=== PATIENT | female | born 1970 | race African-American/Black ===

== ENCOUNTER 2016-07-27 16:34 | Emergency (ER) | payer MEDICAID ==
[~2016-07-27] VITALS: Ht 165.1 cm; Wt 58.0 kg
[2016-07-27] MEDS ORDERED: VISCOUS LIDOCAINE 2% 15 ML UDC PO STA (18:30)
[2016-07-27] MEDS ORDERED: SODIUM CHLORIDE 0.9% 1,000 ML IV ONE (18:30)
[2016-07-27] MEDS ORDERED: FAMOTIDINE 20MG/2ML VIAL IV STA (18:30)
[2016-07-27] MEDS ORDERED: ONDANSETRON HCL 4MG/2ML VIAL IV STA (18:30)
[2016-07-27] MEDS ORDERED: MAGNESIUM/ALUMINUM HYDROXIDE/SIMETHICONE 30ML UDC PO STA (18:30)
[2016-07-27 19:58] VITALS: BP 109/76
== END 2016-07-27 21:25 | disposition home or self-care (01) ==
LOC: ER 16:35
DX: K52.9 Noninfective gastroenteritis and colitis, unspecified (principal); F17.210 Nicotine dependence, cigarettes, uncomplicated
CPT/HCPCS: 81025; 96361; 96374; 96375; 99284; J2405; J3490; J7030